=== PATIENT | female | born 1995 | race Asian ===

== ENCOUNTER 2017-10-06 23:20 | Emergency (ER) | payer BC ==
[2017-10-07] MEDS ORDERED: Acetaminophen TAB* 325 MG PO ONE (00:19)
--- NOTE | 2017-10-07 00:24 | ED ---
Lower Extremity - HPI Summary HPI Summary: Patient is a 21-year-old female who presents emergency department for a left ankle injury that occurred just prior to arrival. States she was walking down steps from a house when she misstepped and twisted her left ankle. Denies numbness, tingling or weakness. No other injuries were sustained. This unable to bear weight. Walking and moving ankle makes symptoms worse. Rest makes symptoms better. - History of Current Complaint Chief Complaint: EDExtremityLower Stated Complaint: FALL, LEFT FOOT INJURY Time Seen by Provider: 10/07/17 00:11 Hx Obtained From: Patient Mechanism Of Injury: Fall From A Standing Position Onset of Pain: Immediate Onset/Duration: Hours Severity Initially: Moderate Severity Currently: Moderate Pain Intensity: 3 Character Of Pain: Aching, Throbbing Associated Signs And Symptoms: Positive: Swelling, Weakness. Negative: Bruising Aggravating Factor(s): Standing, Ambulation Alleviating Factor(s): Rest, Elevation Able to Bear Weight: No - Allergies/Home Medications Allergies/Adverse Reactions: Allergies Allergy/AdvReac Type Severity Reaction Status Date / Time Penicillins Allergy Hives Verified 10/06/17 23:27 Home Medications: Home Medications NK [No Home Medications Reported] 10/07/17 [History Confirmed 10/07/17] PMH/Surg Hx/FS Hx/Imm Hx Previously Healthy: Yes Infectious Disease History: No Infectious Disease History: Denies: Traveled Outside the [place] in Last 30 Days - Social History Occupation: Student Lives: Dormitory/Roommates Alcohol Use: Rare Substance Use Type: Reports: None Smoking Status (MU): Never Smoked Tobacco Review of Systems Positive: Other - Pain and swelling left ankle Skin: Negative Negative: Weakness, Paresthesia, Numbness All Other Systems Reviewed And Are Negative: Yes Physical Exam Triage Information Reviewed: Yes Vital Signs On Initial Exam: Initial Vitals Temp Pulse Resp BP Pulse Ox 98.6 F 99 16 131/85 100 10/06/17 23:20 10/06/17 23:20 10/06/17 23:20 10/06/17 23:20 10/06/17 23:20 Vital Signs Reviewed: Yes Appearance: Positive: Well-Appearing - Pt. lying in bed in NAD. Friend present. Skin: Positive: Warm, Dry Head/Face: Positive: Normal Head/Face Inspection Eyes: Positive: Normal Musculoskeletal: Positive: Other - Moderate edema noted diffusely to the left ankle. Mild pain to the left lateral knee and pain with extension. Knee and ankle are stable without increase in laxity. Good palpable pedal pulse. No neurosensory deficits. Achilles tendon is intact. No palpable foot pain or pain to the base of the fifth metatarsal. Neurological: Positive: Normal, CN Intact II-III Psychiatric: Positive: Normal Procedures - Splinting Hand-Made Type: fiberglass Splint: stirrup Pre-Proc Neuro Vasc Exam: normal Post-Proc Neuro Vasc Exam: normal Diagnostics - Vital Signs Vital Signs Temp Pulse Resp BP Pulse Ox 10/06/17 23:20 98.6 F 99 16 131/85 100 - Laboratory Lab Statement: Any lab studies that have been ordered have been reviewed, and results considered in the medical decision making process. Lower Extremity Course/Dx - Course Course Of Treatment: Patient presenting to the ER for an axillary left lower leg injury. She was given is Tylenol for pain initially. X-rays of the knee are negative for acute fracture dislocation. Ankle x-ray shows a bimalleolar fracture and possibly trimalleolar fx with minimal displacement, mortise is intact, reading per myself and Dr. Jo. I spoke with on-call orthopedics, Dr. Betancourt, who would like patient placed in a posterior and stirrup splint and he will see her in the office on Monday. Suspect patient will need internal fixation. Results were discussed with patient. Splint was placed. Crutches given. Discussed pain management with patient and she would like to stick with Tylenol. Advised to ice and elevate. To keep splint in place and use crutches for walking. Advised to return to the ER for increased swelling or tingling, numbness or discoloration to extremity. Patient understands and agrees with plan. - Diagnoses Provider Diagnoses: Bimalleolar fracture Discharge - Sign-Out/Discharge Documenting (check all that apply): Discharge - Discharge Plan Condition: Good Disposition: HOME Patient Education Materials: Ankle Fracture (ED) Referrals: Artem Betancourt MD [Medical Doctor] - No Primary Care Phys,NOPCP [Primary Care Provider] - Additional Instructions: Call Dr. Betancourt's office Monday to schedule an appointment Keep splint in place Use crutches Ice and elevate intermittently Tylenol for pain as directed for pain Return to ER for tingling, numbness or discoloration to leg or for significant swelling - Billing Disposition and Condition Condition: GOOD Disposition: HOME
[2017-10-07 03:14] VITALS: BP 119/67
--- NOTE | 2017-10-07 08:51 | RAD ---
INDICATION: Left ankle and knee pain after a fall COMPARISON: None TECHNIQUE: 4 view radiograph of the left knee and 3 views of the left ankle. FINDINGS: Knee: The visualized bones of the knee are well-corticated and properly aligned. The joint spaces are properly maintained. There is no radiographic evidence of joint effusion. There is no acute fracture, dislocation or other focal bony abnormality. Ankle: There is a comminuted fracture involving the distal metaphysis of the left fibula. There is a nondisplaced fracture of the tibial malleolus as well as a slightly displaced fracture of the posterior tibial malleolus. There is no definite asymmetric widening of the ankle mortise. There is expected surrounding soft tissue swelling around the ankle. IMPRESSION: 1. Fractures of the left medial and posterior malleoli as well as comminuted fracture of the distal metaphysis of the left fibula. 2. Normal knee radiograph.
== END 2017-10-07 03:12 | disposition home or self-care (01) ==
LOC: ED 23:20
DX: S82.842A Displaced bimalleolar fracture of left lower leg, initial encounter for closed fracture (principal); S82.52XA Displaced fracture of medial malleolus of left tibia, initial encounter for closed fracture; S82.402A Unspecified fracture of shaft of left fibula, initial encounter for closed fracture; W10.9XXA Fall (on) (from) unspecified stairs and steps, initial encounter; Y92.9 Unspecified place or not applicable
CPT/HCPCS: 99282; A9270-GY